=== PATIENT | male | born 1990 | race Caucasian/White ===

== ENCOUNTER 2017-01-27 18:06 | Emergency (ER) | payer SELFPAY ==
[~2017-01-27] VITALS: Ht 177.8 cm; Wt 66.5 kg
[2017-01-27 18:32] VITALS: Ht 177.8 cm; Wt 66.5 kg
[2017-01-27] MEDS ORDERED: KETOROLAC 60 MG INJ IM STA (19:06)
--- NOTE | 2017-01-27 21:09 | RADRPT ---
PROCEDURE: XR Lumbar Spine. CLINICAL INDICATION: Low back pain. TECHNIQUE: Two views of the lumbar spine are available for review COMPARISON: None available FINDINGS: The normal lumbar lordosis is preserved. Alignment is intact. No acute fracture or dislocation is seen. The vertebral body heights and disk spaces are grossly preserved. IMPRESSION: 1. No acute fracture or subluxation. RPTAT: HFN .Page Leiva MD, Date Time Electronically viewed and signed by .Page Leiva MD, on 01/27/2017 21:08 .N/
[2017-01-27] MEDS ORDERED: IBUP-1542 PO (21:30)
[2017-01-27] MEDS ORDERED: CYCL-319 PO (21:30)
--- NOTE | 2017-01-27 21:45 | ERD ---
ER Documentation Chief Complaint Date/Time DATE: 01/27/17 TIME: 21:39 Chief Complaint PT REPORTS HE HURT HIS BACK AT WORK 2 WEEKS AGO MOVING A FOOD CART HPI 26-year-old male patient with no significant past medical history presents to the ED stating that he works here at [employer] in the [employer] unit. States that he was lifting a 150 pound cart across the elevator over a step and accidentally the felt like his back cracked 3 weeks ago and still has pain. Patient reports that he thought the pain was going to go away. Describes the pain as sharp and rates it a 7 out of 10. States that at times the pain becomes achy. Denies any chest pain, fever, shortness of breath, abdominal pain , nausea, vomiting, urinary retention, urine or bowel incontinence, saddle anesthesia, numbness and tingling. ROS All systems reviewed and are negative except as per history of present illness. Medications Home Meds Active Scripts Cyclobenzaprine Hcl* (Cyclobenzaprine Hcl*) 10 Mg Tablet, 10 MG PO TID, #15 TAB Prov:BECKI SPAULDING PA-C 01/27/17 Ibuprofen* (Motrin*) 600 Mg Tab, 600 MG PO Q6, #30 TAB Prov:BECKI SPAULDING PA-C 01/27/17 PMhx/Soc Medical and Surgical Hx: pt denies Medical Hx, pt denies Surgical Hx History of Surgery: No (DENIES MEDICAL AND SURGICAL HX.) Hx Alcohol Use: No Hx Substance Use: No Hx Tobacco Use: Yes Smoking Status: Never smoker Physical Exam Vitals Vital Signs Date Time Temp Pulse Resp B/P Pulse Ox O2 Delivery O2 Flow Rate FiO2 01/27/17 18:32 98.3 74 18 138/83 98 Physical Exam Const: Els-[id number]-[id number], well-nourished. In no acute distress. Head: Atraumatic, normocephalic Eyes: Normal Conjunctiva without injection. No purulent discharge. ENT: Normal external ear, nose. Moist oropharynx without tonsillar exudates. Non -erythematous pharynx. Uvula midline. No drooling. No trismus. Neck: No cervical midline tenderness. Full range of motion. No meningismus. No cervical lymphadenopathy. No JVD. Resp: Clear to auscultation bilaterally. No wheezing, rhonchi, rales, or crackles. No accessory muscle use. No retractions. Cardio: Regular rate and rhythm. No murmurs, rubs or gallops. Abd: Soft, nontender, non distended. Normal bowel sounds. No palpable masses. No rebound tenderness. No guarding. Negative McBurney's point. Negative psoas sign. Negative obturator sign. Skin: No petechiae or rashes Back: Paraspinal bilateral tenderness that is reproducible. No CVA tenderness. Full range of motion with flexion, extension, rotational movements. Ext: No cyanosis, or edema. Neur: Awake and alert. Normal gait. Normal coordination. Psych: Normal Mood and Affect Results 24 hrs Current Medications Medications (Trade) Dose Ordered Sig/Brooke Route PRN Reason Start Time Stop Time Status Last Admin Dose Admin Ketorolac Tromethamine (Toradol) 60 mg ONCE STAT IM 01/27/17 19:06 01/27/17 19:08 DC 01/27/17 19:21 Procedures/MDM This is a 26-year-old male patient with no significant past medical history presents the ED complaining of back pain after heavy lifting. Patient is afebrile nontoxic appearing. Patient has normal vital signs. Patient was given Toradol here in the ED with improvement of his symptoms. PROCEDURE: XR Lumbar Spine. CLINICAL INDICATION: Low back pain. TECHNIQUE: Two views of the lumbar spine are available for review COMPARISON: None available FINDINGS: The normal lumbar lordosis is preserved. Alignment is intact. No acute fracture or dislocation is seen. The vertebral body heights and disk spaces are grossly preserved. IMPRESSION: 1. No acute fracture or subluxation. Patient likely sustained a lumbar sprain/strain. Patient is ambulating here in the ED without difficulty. Denies saddle anesthesia, numbness or tingling, urine or bowel incontinence, weakness. Low suspicion for cauda equina syndrome, cord compression, nephrolithiasis, aortic aneurysm, aortic dissection, epidural abscess, spinal hematoma, malignancy, pyelonephritis, or other emergent conditions. Discharge medications: Ibuprofen, Flexeril Follow up with primary care physician in 1-2 days for further evaluation and treatment. Instructed patient to return to the ED sooner for any worsening symptoms. Patient's questions were answered. Patient understood and agreed with discharge plan. Patient discharged stable. Departure Diagnosis: Primary Impression: Back pain Back pain location: back pain in unspecified location Chronicity: unspecified Back pain laterality: unspecified Qualified Code: M54.9 - Back pain, unspecified back location, unspecified back pain laterality, unspecified chronicity Condition: Stable Patient Instructions: Self-Care for Low Back Pain, Back Pain During : Moving Safely, Back Care Tips, Back Pain (Acute Or Chronic) Referrals: [facility] YOU HAVE RECEIVED A MEDICAL SCREENING EXAM AND THE RESULTS INDICATE THAT YOU DO NOT HAVE A CONDITION THAT REQUIRES URGENT TREATMENT IN THE EMERGENCY DEPARTMENT. FURTHER EVALUATION AND TREATMENT OF YOUR CONDITION CAN WAIT UNTIL YOU ARE SEEN IN YOUR DOCTORS OFFICE WITHIN THE NEXT 1-2 DAYS. IT IS YOUR RESPONSIBILITY TO MAKE AN APPOINTMENT FOR FOLOW-UP CARE. IF YOU HAVE A PRIMARY DOCTOR --you should call your primary doctor and schedule an appointment IF YOU DO NOT HAVE A PRIMARY DOCTOR YOU CAN CALL OUR PHYSICIAN REFERRAL HOTLINE AT IF YOU CAN NOT AFFORD TO SEE A PHYSICIAN YOU CAN CHOSE FROM THE FOLLOWING [facility] [address] [facility]. [facility] [address] [facility] [facility] [address] [facility] [facility] [address] [facility] [facility] [address] [facility]. [facility]. [address] [facility]. [facility] YOU HAVE RECEIVED A MEDICAL SCREENING EXAM AND THE RESULTS INDICATE THAT YOU DO NOT HAVE A CONDITION THAT REQUIRES URGENT TREATMENT IN THE EMERGENCY DEPARTMENT. FURTHER EVALUATION AND TREATMENT OF YOUR CONDITION CAN WAIT UNTIL YOU ARE SEEN IN YOUR DOCTORS OFFICE WITHIN THE NEXT 1-2 DAYS. IT IS YOUR RESPONSIBILITY TO MAKE AN APPOINTMENT FOR FOLOW-UP CARE. IF YOU HAVE A PRIMARY DOCTOR --you should call your primary doctor and schedule and appointment IF YOU DO NOT HAVE A PRIMARY DOCTOR YOU CAN CALL OUR PHYSICIAN REFERRAL HOTLINE AT . IF YOU CAN NOT AFFORD TO SEE A PHYSICIAN YOU CAN CHOSE FROM THE FOLLOWING [facility] INSTITUTIONS: [facility] [address] [place], [place] [id number] [place] [address] [address] [place] [address] [facility] + [facility] [address] [place] [address] [facility] C[facility]SPECIALT[facility] Additional Instructions: You have been given a medicine which may cause drowsiness.DO NOT DRIVE OR OPERATE DANGEROUS MACHINERY while taking this medicine! Call your primary care doctor TOMORROW for an appointment during the next 2-3 days.See the doctor sooner or return here if your condition worsens before your appointment time. BECKI SPAULDING PA-C Jan 27, 2017 21:45
[2017-01-27 21:50] VITALS: BP 122/88; PULSE 77; RESP 16; TEMP 98
== END 2017-01-27 21:51 | disposition home or self-care (01) ==
LOC: FTE 18:06
DX: M54.9 Dorsalgia, unspecified (principal)
CPT/HCPCS: 72100; 96372; 99284; J1885